=== PATIENT | female | born 1985 | race Caucasian/White ===

== ENCOUNTER 2017-01-25 15:01 | Outpatient (CLI) | payer OTHER ==
[2016-01-24 17:04] VITALS: BP 128/93
--- NOTE | 2017-01-25 15:41 | Diagnostic Imaging Report ---
MALACHI KIM ([employer]) - OP [facility] [id number] [id number] Report Submission Date: Jan 25, 2017 3:22:50 PM CDT Patient Study Name: ZARA HAMM Date: Jan 25, 2017 3:02:35 PM CDT Modality Type: CR Gender: F Description: CHEST : 89 Institution: [facility] Physician: MALACHI KIM ([employer]) - OP Examination: PA and lateral chest. History: Evaluate lung mejias. Comparison exam: None available for direct review Findings: PA lateral chest demonstrate a normal cardiac and mediastinal silhouette. No focal infiltrate. No effusion. No blunting of the costophrenic margins. Osseous structures are appropriate for age. Impression: No acute pulmonary process. Electronically signed on Jan 25, 2017 3:22:50 PM CDT by: Dillon SANTOS
== END 2017-01-25 15:02 ==
LOC: RAD 15:01
PROVIDERS: ATTEND Nurse Practitioner Family
DX: R05 Cough (principal); R06.02 Shortness of breath
CPT/HCPCS: 71020

== ENCOUNTER 2018-11-11 08:50 | Emergency (ER) | payer OTHER ==
[2018-11-11] MEDS ORDERED: 0.9 % SODIUM CHLORIDE 1,000 ML IV ONE ×2 (09:15→10:44)
[2018-11-11] MEDS ORDERED: PROMETHAZINE HCL 25 MG in 0.9 % SODIUM CHLORIDE 50 ML IV ONE (09:15)
--- NOTE | 2018-11-11 09:17 | ED Physician Documentation ---
Nausea/Vomiting/Diarrhea - HISTORIAN Historian: patient, parent (Mom) - HPI Chief Complaint: Nausea,Vomiting,Diarrhea Additional Information: Patient is a 33-year-old female who present to the ER with mom- c/o nausea vomiting diarrhea that started last night around 18:00. She states that she has vomited/dry heaves approx. 5 times and has had approximately 5 diarrhea stools. She took Immodium at 18:00 and again at 20:00 and last at 4 a.m. today. Patient states that she had a shot of whiskey on Monday night and she does occasionally smoke marijuana. She drinks approximately 4-12oz bottles of Pepsi daily. She does not think that she ate anything bad- denies being out in the heat. States that her home is air conditioned. Onset: hours (Started last night around 18:00) Duration: constant Timing: gradual onset Context: denies: out of country travel, bad food Severity: moderate - Associated Symptoms Vomiting: frequent Diarrhea: mucous Abdominal Pain: cramping, moderate (after she tries to eat) - ROS CONST: chills CVS/RESP: denies: chest pain, shortness of breath GI/: none EYES/ENT: none MS/SKIN/LYMPH: denies: joint pain, swollen glands NEURO/PSYCH: none - PAST HX Past History: other (neurofibramatosis type 1, asthma, bordeline personality disorder) Surgeries/Procedures: other (dental) Immunizations: UTD Allergies/Adverse Reactions: Allergies Allergy/AdvReac Type Severity Reaction Status Date / Time Sulfa (Sulfonamide Allergy Intermediate Rash Verified 11/11/18 09:25 Antibiotics) [Sulfa(Sulfonamide Antibiotics)] aspirin AdvReac Severe No Reaction Verified 11/11/18 09:25 Home Medications: Ambulatory Orders Medication Instructions Recorded Baclofen [Lioresal] 10 mg PO TID 10/26/12 Cetirizine HCl 10 mg PO DAILY 10/26/12 Cimetidine 400 mg PO BID 10/26/12 Clonazepam 0.5 mg PO HS 10/26/12 Ferrous Sulfate 650 mg PO DAILY 10/26/12 Fludrocortisone Acetate 0.1 gm PO DAILY 10/26/12 Olanzapine 25 mg PO HS 10/26/12 Omeprazole 20 mg PO BID 10/26/12 Piroxicam 10 mg PO DAILY 07/05/13 Sertraline HCl [Zoloft] 150 mg PO QD 10/26/12 Tramadol HCl [Ultram] 100 mg PO HS 10/26/12 Albuterol Sulfate [Albuterol 2 puff IH BID 06/01/13 Sulfate Hfa] Fexofenadine HCl 60 mg PO DAILY 06/01/13 Multivitamin [One-A-Day Essential] 1 each PO DAILY 06/01/13 Clindamycin HCl 150 mg TID 06/05/14 Hydrocodone/Acetaminophen 300 mg PRN PRN 06/05/14 [Hydrocodon-Acetaminophen 5-325] Ibuprofen [Advil] 200 mg BID 06/05/14 predniSONE [Deltasone] 20 mg PO QD #6 tablet 01/06/16 Promethazine HCl [Phenergan] 25 mg PO Q6 PRN #15 tablet 11/11/18 - SOCIAL HX Smoking History: greater than 1 pack/day Alcohol Use: occasionally Drug Use: marijuana - FAMILY HX Family History: none - VITAL SIGNS Vital Signs: Vital Signs Temp Pulse Resp BP Pulse Ox 97.9 F 66 14 115/60 99 11/11/18 08:51 11/11/18 08:51 11/11/18 08:51 11/11/18 08:51 11/11/18 08:51 - REVIEWED ASSESSMENTS Nursing Assessment Reviewed: Yes Vitals Reviewed: Yes Progress - Progress Progress: 11:20 patient feeling better after IV fluids, still c/o some nausea with no vomiting; diarrhea has improved Discussed starting with clear liquids and advancing diet as tolerated; no greasy or fried foods ED Results Lab/Radiology - Lab Results Lab Results: Lab Results 11/11/18 11/11/18 11/11/18 10:05 10:05 10:05 WBC 7.40 K/ul K/ul (4.00-12.00) RBC 4.62 M/ul M/ul (3.90-5.20) Hgb 14.9 g/dL g/dL (11.5-16.0) Hct 44.1 % % (34.5-46.5) MCV 95.0 fl fl (80.0-100.0) MCH 32.2 pg pg (28.0-34.0) MCHC 33.8 g/dL g/dL (30.0-36.0) RDW 12.7 % % (11.3-14.3) Plt Count 289 K/mm3 K/mm3 (130-400) Neut % (Auto) 82.6 % H % (39.0-79.0) Lymph % (Auto) 11.6 % L % (16.0-50.0) [place] % (Auto) 4.4 % % (0.0-11.0) Eos % (Auto) 1.2 % % (0.0-6.8) Baso % (Auto) 0.2 % % (0.0-1.5) Neut # (Auto) 6.1 # k/uL # k/uL (1.4-7.7) Lymph # (Auto) 0.9 # k/uL # k/uL (0.6-4.0) [place] # (Auto) 0.3 # k/uL # k/uL (0.0-0.9) Eos # (Auto) 0.1 # k/uL # k/uL (0.0-0.6) Baso # (Auto) 0.0 # k/uL # k/uL (0.0-0.5) Sodium 136 mmol/L L mmol/L (137-145) Potassium 3.7 mmol/L mmol/L (3.5-5.1) Chloride 105 mmol/L mmol/L (98-107) Carbon Dioxide 22 mmol/L mmol/L (22-30) Anion Gap 12.7 mmol/L H mmol/L (3-11) BUN 4 mg/dL L mg/dL (7-17) Creatinine 0.63 mg/dL mg/dL (0.52-1.04) Estimated Creat Clear 207 Est GFR ( Amer) > 60 (60 - ) Est GFR (Non-Af Amer) > 60 (60 - ) Glucose 129 mg/dL H mg/dL (74-106) Calcium 10.3 mg/dL H mg/dL (8.4-10.2) Total Bilirubin 0.6 mg/dL mg/dL (0.2-1.3) AST 25 U/L U/L (15-46) ALT 7 U/L L U/L (13-69) Alkaline Phosphatase 90 U/L U/L (38-126) Total Protein 8.1 g/dL g/dL (6.3-8.2) Albumin 4.7 g/dL g/dL (3.5-5.0) Lipase 32 U/L U/L (23-300) - Orders Orders: ED Orders Category Date Time Status Place IV Lock 1T Care 11/11/18 09:15 Active CBC/PLATELET/DIFF Routine Lab 11/11/18 10:05 Completed CMP Routine Lab 11/11/18 10:05 Completed LIPASE Stat Lab 11/11/18 10:05 Completed URINALYSIS Routine Lab 11/11/18 Ordered 0.9 % Sodium Chloride [Normal Saline] 1,000 ml Med 11/11/18 09:15 Discontinued IV Q1H 0.9 % Sodium Chloride [Normal Saline] 1,000 ml Med 11/11/18 10:44 Discontinued IV Q1H Promethazine HCl [Phenergan] 25 mg Med 11/11/18 09:15 Discontinued 0.9 % Sodium Chloride [Normal Saline] 50 ml IV NOW Nausea Physical Exam - EXAM General Appearance: alert, mild distress EENT: eye inspection normal, ENT inspection normal, JOSE, dry mucous membranes Neck: normal inspection, supple Respiratory: breath sounds normal CVS: heart sounds normal, equal pulses Abdomen: non-tender Back: non-tender Skin: warm/dry, pallor Extremities: non-tender, normal range of motion Neuro/Psych: oriented X3, CN's nml as tested, motor nml, sensation nml, mood/affect nml, cognition normal Discharge Clincal Impression: Nausea vomiting and diarrhea Prescriptions: Promethazine HCl [Phenergan] 25 mg PO Q6 PRN #15 tablet PRN Reason: Nausea and Vomiting Referrals: Sheri Burkett VASCULAR PHYSICIAN [Primary Care Provider] - 2 Days Additional Instructions: May take Phenergan 25mg by mouth every 6 hours as needed for nausea and vomiting Start with clear liquids and then advance as tolerated. Avoid Spicy & [place] foods Follow up with PCP next week for re-evaluation Condition: Good Disposition: 01 HOME, SELF-CARE Decision to Admit: NO Decision Time: 11:40
[2018-11-11 10:24] LABS: BASOPHILS % 0.2 % (0.0-1.5); NEUTROPHILS # 6.1 # k/uL (1.4-7.7)
[2018-11-11 10:26] LABS: eGFR (Non-African) > 60
[2018-11-11 12:22] VITALS: BP 112/64
[2018-11-11 21:03] LABS: APPEARANCE,URINE CLEAR (CLEAR); COLOR,URINE YELLOW (YELLOW); OCCULT BLOOD,URINE NEGATIVE (NEGATIVE); PH URINE 7.5 (5.0 - 8.0); UROBILINOGEN URINE 0.2 Eu (0.2-1.0)
== END 2018-11-11 11:50 | disposition home or self-care (01) ==
LOC: ED 08:50
DX: R11.2 Nausea with vomiting, unspecified (principal); R19.7 Diarrhea, unspecified
CPT/HCPCS: 80053; 81002; 83690; 85025; 96361; 96365; 96366; 99284; J2550; J7030; S1016